=== PATIENT | male | born 1990 ===

== ENCOUNTER 2020-04-02 15:00 | Emergency (ER) | payer OTHER ==
[~2020-04-02] VITALS: Ht 185.4 cm; Wt 57.2 kg
[2020-04-02] MEDS ORDERED: VISTARIL25 MG PO (16:28)
== END 2020-04-02 16:34 | disposition home or self-care (01) ==
LOC: ER 15:00
DX: R06.02 Shortness of breath (principal); F06.4 Anxiety disorder due to known physiological condition